=== PATIENT | female | born 1960 | race Caucasian/White ===

== ENCOUNTER 2019-04-09 16:54 | Observation (INO) | payer BC ==
[2019-04-09] MEDS ORDERED: ASPIRIN 81 MG CHEWABLE TABLET PO ONE (17:57)
[2019-04-09] MEDS ORDERED: NITROGLYCERIN 0.4MG SL TABLET #25 BTL SL PRN ×2 (17:57→20:30)
[2019-04-09 18:14] LABS: ABSOLUTE NEUTROPHIL COUNT 5.71; BASO % 0.2 % (0-6); GRAN % 63.8 % (47-80); HEMATOCRIT 39.8 % (35.0-47.0); HEMOGLOBIN 13.6 gm/dl (11.6-16.0); LYMPH % 25.8 % (16-45); MEAN CELL VOLUME 86.9 fl (81-97); MEAN CORPUSCULAR HEMOGLOBIN 29.7 pg (27-33); MEAN CORPUSCULAR HGB CONC 34.2 g/dl (32-36); MEAN PLATELET VOLUME 8.6 fl (7.4-10.4); MONO % 8.2 % (0-9); PLATELET COUNT 537 K/uL (130-400); RED BLOOD COUNT 4.58 M/uL (3.80-5.40); RED CELL DISTRIBUTION WIDTH 14.1 % (11.5-14.5)
--- NOTE | 2019-04-09 18:17 | Emergency Department Record ---
History of Present Illness - General Mode of Arrival: Ambulatory - History of Present Illness Onset/Timin -: Hour(s) Radiation: Left arm Severity scale (1-10): 4 Quality: Aching Consistency: Intermittent Improves With: Nothing Worsens With: Nothing Associated Symptoms: Denies other symptoms Treatments Prior to Arrival: None - Related Data Home Oxygen Therapy: No <JYOTSNA KHANNA - Last Filed: 04/09/19 18:16> - General Source: Patient Mode of Arrival: Ambulatory Limitations: No limitations - History of Present Illness Initial Comments: pt states she is sob and feels tingling in her hands. then after she was brought back to the room she stated she has had some chest pressure as well and aching in her l arm Radiation: Left arm Quality: Aching Consistency: Intermittent Improves With: Nothing Worsens With: Nothing Associated Symptoms: Denies other symptoms Treatments Prior to Arrival: None <Anne Sandoval - Last Filed: 04/09/19 19:04> <Sridhar Chapa - Last Filed: 04/09/19 21:17> - General Chief Complaint: Shortness of breath Stated Complaint: SOB Time Seen by Provider: 04/09/19 17:36 - Related Data Home Medications Medication Instructions Recorded Confirmed Last Taken Alprazolam 0.56 mg PO ASDIR 04/09/19 04/09/19 Unknown Fluoxetine HCl 40 mg PO DAILY 04/09/19 04/09/19 04/09/19 Lansoprazole [Prevacid] 30 mg PO DAILY 04/09/19 04/09/19 04/09/19 Levothyroxine Sodium 137 mcg PO DAILY 04/09/19 04/09/19 04/09/19 Trazodone HCl 100 mg PO QHS 04/09/19 04/09/19 04/08/19 Allergies Allergy/AdvReac Type Severity Reaction Status Date / Time No Known Drug Allergies Allergy Verified 04/09/19 17:03 Travel Screening - Travel/Exposure Within Last 30 Days Have you traveled within the last 30 days?: No - Travel/Exposure Within Last Year Have you traveled outside the [place] in the last year?: No - Additonal Travel Details Have you been exposed to anyone with a communicable illness?: No - Travel Symptoms Symptom Screening: None <JYOTSNA KHANNA - Last Filed: 04/09/19 18:16> Review of Systems Reviewed: No additional complaints except as noted below Constitutional: Reports: As per HPI. Denies: Chills, Fever, Malaise, Night sweats, Weakness, Weight change Eyes: Reports: As per HPI. Denies: Eye discharge, Eye pain, Photophobia, Vision change ENT: Reports: As per HPI. Denies: Congestion, Dental pain, Ear pain, Epistaxis, Hearing loss, Throat pain Respiratory: Reports: As per HPI. Denies: Cough, Dyspnea, Hemoptysis, Stridor, Wheezes Cardiovascular: Reports: As per HPI. Denies: Arrhythmia, Chest pain, Dyspnea on exertion, Edema, Murmurs, Orthopnea, Palpitations, Paroxysmal nocturnal dyspnea, Rheumatic Fever, Syncope Endocrine: Reports: As per HPI. Denies: Fatigue, Heat or cold intolerance, Polydipsia, Polyuria Gastrointestinal: Reports: As per HPI. Denies: Abdominal pain, Constipation, Diarrhea, Hematemesis, Hematochezia, Melena, Nausea, Vomiting Genitourinary: Reports: As per HPI. Denies: Abnormal menses, Discharge, Dyspareunia, Dysuria, Frequency, Hematuria, Incontinence, Retention, Urgency Musculoskeletal: Reports: As per HPI. Denies: Arthralgia, Back pain, Gout, Joint swelling, Myalgia, Neck pain Skin: Reports: As per HPI. Denies: Bruising, Change in color, Change in hair/nails, Lesions, Pruritus, Rash Neurological: Reports: As per HPI. Denies: Abnormal gait, Confusion, Headache, Numbness, Paresthesias, Seizure, Tingling, Tremors, Vertigo, Weakness Psychiatric: Reports: As per HPI. Denies: Anxiety, Auditory hallucinations, Depression, Homicidal thoughts, Suicidal thoughts, Visual hallucinations Hematological/Lymphatic: Reports: As per HPI. Denies: Anemia, Blood Clots, Easy bleeding, Easy bruising, Swollen glands <Anne Sandoval - Last Filed: 04/09/19 19:04> Past Medical History - SOCIAL HISTORY Smoking Status: Current every day smoker Alcohol Use: None Drug Use: None - RESPIRATORY Hx Respiratory Disorders: No - CARDIOVASCULAR Hx Cardio Disorders: No - NEURO Hx Neuro Disorders: No - GI Hx GI Disorders: Yes Hx Reflux: Yes - Hx Genitourinary Disorders: No - ENDOCRINE Hx Endocrine Disorders: Yes Hx Thyroid Disease: Yes - MUSCULOSKELETAL Hx Musculoskeletal Disorders: No - PSYCH Hx Psych Problems: Yes Hx Anxiety: Yes Hx Depression: Yes - HEMATOLOGY/ONCOLOGY Hx Hematology/Oncology Disorders: No <JYOTSNA KHANNA - Last Filed: 04/09/19 18:16> - SOCIAL HISTORY Smoking Status: Current every day smoker <Anne Sandoval - Last Filed: 04/09/19 19:04> Family Medical History Any Significant Family History?: No <JYOTSNA KHANNA - Last Filed: 04/09/19 18:16> Physical Exam - General General Appearance: Alert, Oriented x3, Cooperative, Mild distress - Head Head exam: Normal inspection - Eye Eye exam: Normal appearance, PERRL, EOMI Pupils: Normal accommodation - ENT ENT exam: Normal exam, Mucous membranes moist, Normal external ear exam, Normal orophraynx Ear exam: Normal external inspection. negative: External canal tenderness Nasal Exam: Normal inspection. negative: Discharge, Sinus tenderness Mouth exam: Normal external inspection, Tongue normal Teeth exam: Normal inspection. negative: Dental caries Throat exam: Normal inspection. negative: Tonsillar erythema, Tonsillar exudate - Neck Neck exam: Normal inspection, Full ROM. negative: Tenderness - Respiratory Respiratory exam: Normal lung sounds bilaterally. negative: Respiratory distress - Cardiovascular Cardiovascular Exam: Regular rate, Normal rhythm, Normal heart sounds - GI/Abdominal GI/Abdominal exam: Soft, Normal bowel sounds. negative: Tenderness - Rectal Rectal exam: Deferred - exam: Deferred - Extremities Extremities exam: Normal inspection, Full ROM, Normal capillary refill. negative: Tenderness - Back Back exam: Reports: Normal inspection, Full ROM. Denies: Muscle spasm, Rash noted, Tenderness - Neurological Neurological exam: Alert, CN II-XII intact, Normal gait, Oriented X3 - Psychiatric Psychiatric exam: Normal affect, Normal mood - Skin Skin exam: Dry, Intact, Normal color, Warm <Anne Sandoval Farshad - Last Filed: 04/09/19 19:04> Course Vital Signs 04/09/19 17:07 Pulse Rate 68 Respiratory 20 Rate <JYOTSNA KHANNA - Last Filed: 04/09/19 18:16> Vital Signs 04/09/19 04/09/19 17:07 18:30 Pulse Rate 68 Pulse Rate [ 68 Corporate Responsibility Officer ] Respiratory 20 18 Rate Blood Pressure 111/61 [Left Arm] Pulse Ox 95 - Reevaluation(s) Reevaluation #1: 04/09/19 19:04 pt didnt mention cp initially so did not get asa initially. pt refused ntg, pain is 08/28 <Anne Sandoval - Last Filed: 04/09/19 19:04> Vital Signs 04/09/19 04/09/19 04/09/19 17:07 18:30 20:30 Pulse Rate 68 Pulse Rate [ 68 Corporate Responsibility Officer ] Pulse Rate [ 72 Pulse Ox Probe] Respiratory 20 18 20 Rate Blood Pressure 111/61 111/74 [Left Arm] Pulse Ox 95 99 <Sridhar Chapa - Last Filed: 04/09/19 21:17> Medical Decision Making - Lab Data Result diagrams: 04/09/19 17:45 04/09/19 17:45 <JYOTSNA KHANNA - Last Filed: 04/09/19 18:16> - Lab Data Result diagrams: 04/09/19 17:45 04/09/19 17:45 Lab Results 04/09/19 04/09/19 Range/Units 17:45 17:45 WBC 9.0 (4.2-12.2) K/uL RBC 4.58 (3.80-5.40) M/uL Hgb 13.6 (11.6-16.0) gm/dl Hct 39.8 (35.0-47.0) % MCV 86.9 (81-97) fl MCH 29.7 (27-33) pg MCHC 34.2 (32-36) g/dl RDW 14.1 (11.5-14.5) % Plt Count 537 H (130-400) K/uL MPV 8.6 (7.4-10.4) fl Gran % 63.8 (47-80) % Lymphocytes % 25.8 (16-45) % Monocytes % 8.2 (0-9) % Eosinophils % 2.0 (0-6) % Basophils % 0.2 (0-6) % Absolute Neutrophils 5.71 D-Dimer 0.46 (0-0.59) mg/L FEU <Anne Sandoval - Last Filed: 04/09/19 19:04> - Lab Data Result diagrams: 04/09/19 17:45 04/09/19 17:45 Lab Results 04/09/19 04/09/19 04/09/19 Range/Units 17:45 17:45 17:45 WBC 9.0 (4.2-12.2) K/uL RBC 4.58 (3.80-5.40) M/uL Hgb 13.6 (11.6-16.0) gm/dl Hct 39.8 (35.0-47.0) % MCV 86.9 (81-97) fl MCH 29.7 (27-33) pg MCHC 34.2 (32-36) g/dl RDW 14.1 (11.5-14.5) % Plt Count 537 H (130-400) K/uL MPV 8.6 (7.4-10.4) fl Gran % 63.8 (47-80) % Lymphocytes % 25.8 (16-45) % Monocytes % 8.2 (0-9) % Eosinophils % 2.0 (0-6) % Basophils % 0.2 (0-6) % Absolute Neutrophils 5.71 D-Dimer 0.46 (0-0.59) mg/L FEU Sodium 131 L (136-145) mmol/L Potassium 4.2 (3.4-4.5) mmol/L Chloride 94 L (98-107) mmol/L Carbon Dioxide 22.0 (22-29) mmol/L Anion Gap 15.0 (7-16) BUN 9 (6-20) mg/dL Creatinine 1.1 H (0.5-0.9) mg/dL Estimated GFR 54 mL/min Random Glucose 102 (74-109) mg/dL Calcium 9.5 (8.6-10.0) mg/dL Total Bilirubin 0.20 (0.2-1.0) mg/dL AST 17 (10.0-35.0) U/L ALT 10 (<33) U/L Alkaline Phosphatase 97 (35-104) U/L Creatine Kinase 224 H (26-192) U/L CK-MB (CK-2) 2.9 (<3.77) ng/mL Troponin T < 0.010 (0-0.010) ng/mL Total Protein 7.9 (6.6-8.7) g/dL Albumin 4.6 (4.0-5.0) g/dL Globulin 3.3 (1.4-4.8) gm/dL Albumin/Globulin Ratio 1.4 (1.1-1.8) <Sridhar Chapa - Last Filed: 04/09/19 21:17> Disposition <JYOTSNA KHANNA - Last Filed: 04/09/19 18:16> Disposition: Admit Decision to Admit: Admit from ER Decision to Admit Date: 04/09/19 Decision to Admit Time: 19:07 <Anne Sandoval - Last Filed: 04/09/19 19:04> <Sridhar Chapa - Last Filed: 04/09/19 21:17> Clinical Impression: Shortness of breath Chest pain Qualifiers: Chest pain type: unspecified Qualified Code(s): R07.9 - Chest pain, unspecified Disposition: Still a Patient at [facility] Quality - Blood Pressure Screening Does Patient Have Any of the Following: No <JYOTSNA KHANNA - Last Filed: 04/09/19 18:16> - Quality Measures Quality Measures: N/A - Blood Pressure Screening Does Patient Have Any of the Following: No Blood Pressure Classification: Normal BP Reading Systolic Measurement: 111 Diastolic Measurement: 61 Screening for High Blood Pressure: < Normal BP, F/U Not Required > [G8783] <Anne Sandoval - Last Filed: 04/09/19 19:04> - Blood Pressure Screening Blood Pressure Classification: Normal BP Reading Systolic Measurement: 111 Diastolic Measurement: 74 Screening for High Blood Pressure: < Normal BP, F/U Not Required > [G8783] <Sridhar Chapa - Last Filed: 04/09/19 21:17>
[2019-04-09 18:28] LABS: BLOOD UREA NITROGEN 9 mg/dL (6-20); CREATININE 1.1 mg/dL (0.5-0.9); EST GLOMERULAR FILTRATION RATE 54 mL/min
[2019-04-09 18:29] LABS: TOTAL PROTEIN 7.9 g/dL (6.6-8.7)
[2019-04-09 18:31] LABS: GLUCOSE,RANDOM 102 mg/dL (74-109)
[2019-04-09 18:33] LABS: ALT/SGPT 10 U/L (<33); AST/SGOT 17 U/L (10.0-35.0)
[2019-04-09 18:34] LABS: ALB/GLOB RATIO 1.4 (1.1-1.8); ALBUMIN 4.6 g/dL (4.0-5.0); ALKALINE PHOSPHATASE 97 U/L (35-104); CREATINE PHOSPHOKINASE 224 U/L (26-192)
[2019-04-09 18:35] LABS: CKMB 2.9 ng/mL (<3.77)
[2019-04-09] MEDS ORDERED: ALPRAZOLAM PO SCH (20:30)
[2019-04-09] MEDS ORDERED: ACETAMINOPHEN 500 MG TABLET PO PRN (20:30)
[2019-04-09] MEDS ORDERED: NICOTINE14 MG/24 HOUR PATCH TD SCH (21:00)
[2019-04-09] MEDS ORDERED: TRAZODONE 50 MG TABLET PO SCH (22:00)
[2019-04-10] MEDS ORDERED: PANTOPRAZOLE SODIUM 40 MG TABLET PO SCH (07:00)
[2019-04-10] MEDS ORDERED: LEVOTHYROXINE SODIUM 50 MCG TABLET PO SCH (07:00)
--- NOTE | 2019-04-10 07:35 | RADIOLOGY REPORT ---
EXAM: CHEST, TWO VIEWS HISTORY: LEFT SIDED CHEST PAIN. TECHNIQUE: Two views of the chest were obtained. Comparison: None. FINDINGS: The heart is not enlarged and there is no mediastinal mass. Subtle areas of oval opacity overlie the lower right lung measuring about 1.2 cm in size. This may just represent superimposition artifact. Nonemergent chest CT could be performed to exclude lung mass or nodule. No pneumothorax. Post surgical changes in the proximal right humerus. IMPRESSION: 1. EQUIVOCAL OVAL AREAS OF OPACITY OVERLYING THE RIGHT LOWER LUNG MAY REPRESENT SUPERIMPOSITION ARTIFACT. LUNG MASS OR NODULE NOT EXCLUDED. NONEMERGENCY CHEST CT COULD BE PERFORMED FOR FURTHER ASSESSMENT. 2. OTHERWISE, UNREMARKABLE CHEST X-RAY. JOB NUMBER: [id number] [facility]
--- NOTE | 2019-04-10 09:27 | Discharge Note ---
VTE H&P Assessment - Risk for VTE Risk for VTE: No Risk Level: Very Low Risk Assessment Date: 04/10/19 Risk Assessment Time: 09:21 VTE Orders Placed or Will Be Placed: No VTE Reason for No Prophylaxis: Not Indicated (INCREASE ACTIVITY AND GOING HOME) Discharge Medications - Discharge Medications Home Medications: Ambulatory Orders Alprazolam 0.5 mg PO TID PRN 04/09/19 [Last Taken Unknown] Fluoxetine HCl 40 mg PO QHS 04/09/19 [Last Taken 04/09/19] Lansoprazole [Prevacid] 30 mg PO DAILYAC 04/09/19 [Last Taken 04/09/19] Levothyroxine Sodium 137 mcg PO QHS 04/09/19 [Last Taken 04/09/19] Trazodone HCl 100 mg PO QHS 04/09/19 [Last Taken 04/08/19] Acetaminophen [Tylenol 500Mg Tab] 1,000 mg PO Q6H PRN tablet 04/10/19 [Last T aken Unknown] Aspirin Enteric-Coated [Ecotrin (EC)] 325 mg PO DAILY tabec 04/10/19 [Last Taken Unknown] Ibuprofen 800 mg PO DAILYWM 04/10/19 [Last Taken Unknown] Discharge Note - Date Date of Discharge Note: 04/10/19 Disposition: Home, Self-Care Condition: (1) Good Additional Instructions: follow up with Dr. Peraza in one week stop smoking use nicotine patches OTC if necessary step one take one aspirin a day till after stress testing follow up with cardiology for a stress test at [facility] next week and nursing will give you an appointment with them. Continue home medications needs to follow up with Dr Peraza on her chest xray a spot is present in the right lower lobe, follow up imaging recommended by radiologist as an outpatient return to [facility] if any problems or chest pain Forms: Patient Portal Access Activity at Discharge: Increase Activity as Tolerated Diet at Discharge: Regular Diet
[2019-04-10] MEDS ORDERED: LEVOTHYROXINE SODIUM 88 MCG TABLET PO SCH (10:00)
[2019-04-10] MEDS ORDERED: ASPIRIN 325 MG TAB ENTERIC-COATED PO SCH (10:00)
[2019-04-10] MEDS ORDERED: FLUOXETINE HCL 20 MG CAPSULE PO SCH (10:00)
--- NOTE | 2019-04-10 13:01 | History and Physical Report ---
DATE: 04/09/2019 at 8:50 p.m. This is an observation patient. CHIEF COMPLAINT: Short of breath, tingling in her hands. When she was brought back to the ER room, she said she had some chest pressure and aching in the left arm. She was evaluated by Dr. Sandoval with negative workup for cardiac disease. EKG no acute changes, normal sinus rhythm. The troponin T was negative. D-dimer was in the normal range. However, Dr. Sandoval was concerned it could be cardiac disease and put her in the hospital as observation to rule out IA with serial cardiac enzymes and serial EKGs. The patient also admits she has GERD but it does not feel quite like her GERD. At the time of my evaluation, she is feeling much better. PAST MEDICAL HISTORY: Anxiety and depression, insomnia, hypothyroidism, GERD. PAST SURGICAL HISTORY: Appendectomy, rotator cuff repair, a birthmark repair. MEDICATIONS: 1. Prozac 40 mg daily. 2. Trazodone 100 mg at h.s. for insomnia. 3. levothyroxine 137 mcg daily. 4. Prevacid 30 mg daily. 5. Xanax 0.5 mg p.r.n. She takes it less than 1 a day. ALLERGIES: No known allergies. FAMILY/PSYCHOSOCIAL HISTORY: Current smoker 1 pack a day. No drug or alcohol use. No significant family history. REVIEW OF SYSTEMS: HEENT: No upper respiratory infection symptoms, cough, cold, or congestion. Cardiovascular: No chest pain, palpitations, or arrhythmia. Respiratory: No cough, cold, or congestion. She did have some tingling in her hands and short of breath. Gastrointestinal: No nausea, vomiting, diarrhea, black stools, or bloody stools. Genitourinary: No dysuria, hematuria, frequency, or burning on urination. Musculoskeletal: No joint or bone abnormalities. Neurological: No CVA, paralysis, or paresthesias. Endocrine: She has hypothyroidism. FOREIGN AGENT: No lumps in her breasts or abnormal vaginal bleeding. Integument: No rash, ulcers, change in moles, or yellow skin. PHYSICAL EXAMINATION: VITALS: Height 5 feet 7 inches, weight 191 pounds. Temperature 97.7, pulse 72, blood pressure 111/74, respiratory rate 20, pulse ox 99% on room air. Standing weight 184 on the standing scale, 5 feet 7 inches. HEENT: Pupils are equal, round, and reactive to light and accommodation. Extraocular muscles are intact. Throat is clear. Nose is clear. Tympanic membranes are izaguirre. NECK: Supple. No jugular venous distention. No hepatojugular reflux. No carotid bruits. Thyroid is smooth. CARDIOVASCULAR: Regular rate and rhythm without murmurs, clicks, rubs, or gallops. RESPIRATORY: Clear to auscultation and percussion. ABDOMEN: Soft, nontender. No hepatosplenomegaly, no masses, no tenderness. Bowel sounds are active. No bruits. EXTREMITIES: No pitting edema. No cyanosis, no clubbing. Full range of motion. Peripheral pulses are good. BREASTS: Exam deferred. GYNECOLOGICAL: Exam deferred. RECTAL: Exam deferred. NEUROLOGIC: Cranial nerves II-XII intact. No gross defects. Sensation normal, strength normal. Deep tendon reflexes equal bilaterally with Babinski negative. MENTAL STATUS: Alert and oriented x3. IMPRESSION: 1. Short of breath. 2. Numbness in her hands, resolved when her breathing slowed down. 3. Chest pain, rule out myocardial infarction. 4. Gastroesophageal reflux disease. PLAN: Cardiac enzymes. hospital education coordinator. [facility]
--- NOTE | 2019-04-10 13:01 | Discharge Summary ---
DATE: 04/10/2019 DISCHARGE DIAGNOSES: 1. Chest wall pain. 2. Numbness of the hands probably from hyperventilation. 3. Short of breath, resolved. 4. Gastroesophageal reflux disease. 5. Incidental lung nodule found on chest x-ray right lower lobe. Needs followup x-rays or imaging done on an outpatient basis. Dr. Peraza, her family doctor, should follow up on that. 6. Tobacco use, 1 pack per day since 17 years of age. 7. Anxiety and depression. 8. Hypothyroidism. 9. Insomnia. ATTENDING PHYSICIAN: Sridhar Chapa DO REASON FOR HOSPITALIZATION: This 59-year-old female said she was short of breath, had numbness in her hands. She came to the emergency department for evaluation and said she had some chest heaviness too while in the emergency department. Cardiac workup was performed by Dr. Sandoval. She was admitted to the hospital for serial cardiac enzymes, serial EKGs, and further evaluation. SIGNIFICANT FINDINGS: Cardiac enzymes x2 were negative. EKGs x2 were no acute changes, normal sinus rhythm. She is totally asymptomatic throughout the hospitalization. She said the numbness went away in the emergency department and the chest heaviness went away in the emergency department. The chest x-ray revealed a spot in the right lower lobe. Radiologist was not sure; scar tissue, nodule, versus mass. We recommended further imaging as an outpatient. THERAPY PROVIDED: Cardiac monitoring and further evaluation by Nursing. HOSPITAL COURSE: Unremarkable. Asymptomatic. CONDITION ON DISCHARGE: Stable and no signs of a cardiac event. DISCHARGE INSTRUCTIONS: Follow up with Dr. Peraza, her family doctor, in 1 week. Follow up with Cardiology next week for a possible stress test and consult. Needs to follow up on her chest x-ray through Dr. Peraza, her primary doctor, because of the spot right lower lobe. Needs further imaging as an outpatient. Stop the cigarettes. Recommend if difficulties with that, use the [id number] nicotine patches, step 1, followed by step 2 and step 3. Aspirin once a day until after Cardiology evaluates the patient and family doctor can decide on when to stop that. Continue her home medications of Prozac 40 mg a day, trazodone 100 mg at h.s., levothyroxine 137 mcg daily, Prevacid 30 mg daily, Xanax 0.5 mg p.r.n. She also states she uses ibuprofen in the morning 800 mg in the morning. [facility]
== END 2019-04-10 10:30 | disposition home or self-care (01) ==
LOC: ER 16:54 → MEDSURG 20:31
PROVIDERS: ADMIT Emergency Medicine; ATTEND Emergency Medicine
DX: R07.9 Chest pain, unspecified (principal); M79.622 Pain in left upper arm; F41.9 Anxiety disorder, unspecified; E03.9 Hypothyroidism, unspecified; K21.9 Gastro-esophageal reflux disease without esophagitis; F17.210 Nicotine dependence, cigarettes, uncomplicated
CPT/HCPCS: 99285 ×2; 82550; 85025; 82553 ×2; 80053; 84484 ×2; 85379; 71046; 93005 ×2; 93010; G0378 ×2; 99217; 99220